=== PATIENT | male | born 1990 | race Two or more races ===

== ENCOUNTER 2022-02-21 14:07 | Emergency (ER) | payer OTHER, SELFPAY ==
--- NOTE | 2022-02-21 14:22 | ED.DENTAL ---
HPI - Dental/Oral General Stated complaint: Dental pain Time Seen by Provider: 02/21/22 14:21 Source: patient Mode of arrival: ambulatory Limitations: no limitations History of Present Illness HPI Narrative: 31 yo male presents to the ER for evaluation of dental pain. He states it has been a long time since he brushed his teeth (maybe weeks to months) and he just started doing do again. He states every tooth hurts when he brushes and when he drinks cold drinks. He thinks he may have one front upper tooth on the right that is lose and it is sore. No dental care. No facial swelling, gum swelling, fever or chills. He's coming to the ER asking for a dental cleaning. MD Complaint: tooth pain Onset (ago): day(s) Duration: intermittent Severity: moderate Severity scale (1-10): 5 Relieving factors: nothing Exacerbating factors: cold Context: poor dental care Treatment prior to arrival: none Review of Systems Constitutional: Constitutional: Denies chills and Denies fever(s) Eyes: Eyes: Reports no additional eye complaints ENT: Reports Normal hearing present, Reports dental pain, Denies dry mouth, Denies otalgia, Denies mouth lesions, Reports mouth pain, Denies neck pain, Denies odynophagia, Denies sore throat, Denies throat swelling and Denies tongue swelling Cardiovascular: Cardiovascular: Denies chest pain Respiratory: Respiratory: Denies cough Gastrointestinal: Gastrointestinal: Denies odynophagia Musculoskeletal: Musculoskeletal: Denies neck pain Integumentary/Breasts: Skin/Breast: Denies sores Neurologic: Reports Normal hearing present Hematologic/Lymphatic: Hematologic/Lymphatic: Denies easy bleeding Allergic/Immunologic: Allergic/Immunologic: Denies throat swelling and Denies tongue swelling [facility] Social History Social History Advance Directives: No Advance Directives Information Provided: Yes Physical Exam Const: General: cooperative, healthy appearing, comfortable, no acute distress and well developed Nutritional Appearance: average body habitus Orientation/consciousness: patient oriented x3 Limitations: language barrier HEENT: Head: Yes normal to inspection Ears: hearing grossly normal bilaterally General nose exam: Normal external nose present Face and sinus: Yes normal facial exam and Yes face symmetric Mouth: Normal oral and palatal mucosa present, lip normal, tongue normal, oropharynx normal, moist mucous membranes and malodorous breath Teeth and gingiva: gingiva normal and poor dentition Throat: Yes posterior oropharynx normal, Yes tonsils normal and Yes uvula midline Eyes: General: appearance normal, both eyes and all related structures Neck: Neck: Yes normal visual inspection, Yes no lymphadenopathy and Yes trachea midline Chest: Chest palpation & inspection: normal inspection of the chest Resp: Effort & Inspection: normal respiratory effort and able to speak in complete sentences Skin: General skin exam: no rashes or lesions noted Neuro: General: patient oriented x3 Cranial nerves: Yes Normal hearing present Cognition (Neuro): normal cognition Extrem: General: Yes normal to inspection and Yes full ROM Psych: Appearance: grossly normal Mental Status: mental status grossly normal Speech and movement: Normal speech and movement present Affect: normal affect Attitude: cooperative Course Course Course Narrative: 31 yo male with no connection to dental care presents to the ER seeking dental cleaning with reports of sensitivity and pain with brushing and cold foods. No evidence of major trauma or infection in the mouth. 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 He was given list of local dental providers. Recommended Sensodyne and flossing. stable for d/c home Discharge Plan Discharge Clinical Impression: Toothache Patient Disposition: Home, Self-Care Instructions: Toothache (ED), Mouth Care (ED) Additional Instructions: Recommend using Sensodyne toothpaste. Avoid food that is very hot or very cold. You must follow up with a dentist as soon as possible. If you have worsening pain or develop swelling or facial swelling, call your doctor or come back to the ER for further evaluation. Se recomienda usar la pasta de dientes Sensodyne. Evite los alimentos que est?n muy calientes o muy fr?os. Debe hacer un seguimiento con un dentista lo antes posible. Si tiene un dolor que empeora o desarrolla hinchaz?n o hinchaz?n facial, llame a molina m?dico o regrese a la aimee de emergencias para salbador evaluaci?n adicional. Print Language: Azeri
== END 2022-02-21 15:01 | disposition home or self-care (01) ==
LOC: HO.ED 14:57
PROVIDERS: Emergency Provider Emergency Medicine
DX: K08.89 Other specified disorders of teeth and supporting structures (principal); R46.0 Very low level of personal hygiene
CPT/HCPCS: 99283

== ENCOUNTER 2023-03-10 14:53 | Outpatient (REF) | payer MEDICAID, SELFPAY ==
--- NOTE | ~2023-03-10 | XR_ITS ---
EXAMINATION: XR LUMBOSACRAL SPINE CLINICAL INFORMATION: Acute bilateral back pain without sciatica pain for one week COMPARISON: None available. TECHNIQUE: Three views of the lumbosacral spine. FINDINGS: The normal lordosis is maintained. Vertebral heights and disc heights are fairly well-maintained. May be some early osteophytic spurring of L3-L4 and L2-L3 greater than L4-L5. The SI joints are grossly patent. Cannot exclude some sclerosis associated with the superior left SI joint. XR/XR lumbar spine 2-3V IMPRESSION: There is some mild observations as described. No listhesis or compression injury. If further evaluation is warranted consider MR
[2023-03-10 16:24] LABS: Eosinophils Absolute Auto 0.2 X10*3/uL (0.0-0.4); Eosinophils Percent Auto 2.5 % (0-4); Hematocrit 45.6 % (42.0-52.0); Hemoglobin 16.3 g/dl (14.0-18.0); Mean Corpuscular HGB Conc 35.7 g/dl (31.0-36.0); PLT CLUMP 1; Red Cell Distribution Width 13.8 % (11.0-16.0); SCAN SMEAR FLAG 1
[2023-03-10 16:25] LABS: Basophils Percent Auto 0.3 % (0-2); Imm Gran Abs Auto 0.02 X10*3/uL (0.00-0.03); Imm Gran Pct Auto 0.3 % (0.0-0.4); Lymphocytes Absolute Auto 2.5 X10*3/uL (1.2-4.9); Lymphocytes Percent Auto 41.8 % (20-40); MANUAL DIFF FLAG SCAN; Mean Corpuscular Hemoglobin 29.8 pg (27.0-33.0); Mean Corpuscular Volume 83.4 fL (80.0-98.0); Mean Platelet Volume 10.9 fL (9.4-12.4); Monocytes Absolute Auto 0.5 X10*3/uL (0.1-1.2); Monocytes Percent Auto 8.8 % (2-11); Neutrophils Absolute Auto 2.8 x10*3/uL (2.0-8.3); Neutrophils Percent Auto 46.3 % (45-73); Red Blood Count 5.47 X10*6/uL (4.60-5.80)
[2023-03-10 16:46] LABS: Alanine Aminotransferase 39 U/L (0-40); Albumin Level 4.8 g/dL (3.5-5.0); Alkaline Phosphatase 53 U/L (39-117); Anion Gap 12 (12-20); Aspartate Amino Transferase 38 U/L (5-37); Bilirubin Direct 0.2 mg/dL (0.0-0.5); Bilirubin Total 0.5 mg/dL (0.0-1.0); Blood Urea Nitrogen 10 mg/dL (9-16); C Reactive Protein < 0.10 mg/dL (< or = 0.50); Calcium 9.5 mg/dL (8.4-10.2); Carbon Dioxide 27 mmol/L (22-29); Chloride 107 mmol/L (96-108); Estimated Glomerular Filt Rate > 60; Glucose Random 79 mg/dL (60-115); Potassium 4.2 mmol/L (3.3-5.1); Sodium 142 mmol/L (135-145); Total Protein 8.4 g/dL (6.5-8.0)
[2023-03-10 16:49] LABS: Platelet Count 110 X10*3/uL (160-400); SLIDE REVIEW VERIFIED
== END 2023-03-10 14:54 | disposition home or self-care (01) ==
LOC: HO.HHCX 14:53
PROVIDERS: Visit Provider Family Medicine
DX: R30.0 Dysuria (principal); R52 Pain, unspecified; M54.50 Low back pain, unspecified
CPT/HCPCS: 36415; 72100; 80048; 80076; 85025; 86140; 87086

== ENCOUNTER 2023-03-11 10:46 | Outpatient (REF) | payer MEDICAID, SELFPAY ==
[2023-03-11 14:06] LABS: Appearance Urine Clear; Color Urine Yellow; Glucose Urine UA Negative (Negative); Leukocyte Esterase Urine Negative (Negative); Nitrite Urine Negative (Negative); Urine Blood Negative (Negative); Urine Ketones Negative (Negative); Urine Protein Negative (Neg-Trace)
== END 2023-03-11 10:47 | disposition home or self-care (01) ==
LOC: HO.HHCL 10:46
PROVIDERS: Visit Provider Family Medicine
DX: R30.0 Dysuria (principal); K29.50 Unspecified chronic gastritis without bleeding
CPT/HCPCS: 81003

== ENCOUNTER 2023-03-12 09:58 | Outpatient (REF) | payer MEDICAID, SELFPAY | END 2023-03-12 09:59 | disposition home or self-care (01) | LOC: HO.HHCLNP 09:58 | PROVIDERS: Visit Provider Internal Medicine | DX: K29.50 Unspecified chronic gastritis without bleeding (principal) | CPT/HCPCS: 87338 ==

== ENCOUNTER 2023-04-07 13:26 | Outpatient (REF) | payer MEDICAID, SELFPAY ==
--- NOTE | ~2023-04-07 | US_ITS ---
EXAMINATION: US RETROPERITONEAL LIMITED (RENAL ONLY) CLINICAL INFORMATION: Pelvic and perineal pain. COMPARISON: None available. TECHNIQUE: Real-time imaging of the kidneys. FINDINGS: RIGHT KIDNEY: 10.0 x 4.7 x 5.2 cm (SAG x AP x TRV). The kidney is normal in size, contour, and echogenicity. Renal cortical thickness is normal. No calculi or focal parenchymal lesions. No hydronephrosis. LEFT KIDNEY: 9.7 x 5.2 x 5.0 cm (SAG x AP x TRV). The kidney is normal in size, contour, and echogenicity. Renal cortical thickness is normal. No calculi or focal parenchymal lesions. No hydronephrosis. US/US renal BI IMPRESSION: No hydronephrosis or nephrolithiasis..
== END 2023-04-07 13:27 | disposition home or self-care (01) ==
LOC: HO.US 13:26
PROVIDERS: Visit Provider Internal Medicine
DX: R10.2 Pelvic and perineal pain (principal)
CPT/HCPCS: 76775

== ENCOUNTER 2024-03-06 08:03 | Emergency (ER) | payer OTHER, SELFPAY ==
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
[2024-03-06 08:06] VITALS: BP 138/90; PULSE 89; O2SAT 98
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
[2024-03-06 08:13] VITALS: BP 140/94; PULSE 87; RESP 18; TEMP 36.6; O2SAT 99; BMI 25.7
[2024-03-06] MEDS: Acetaminophen 325 MG TABLET 975 MG PO (08:32)
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
--- NOTE | 2024-03-06 11:43 | PC.NURSE ---
patient resting on stretcher, still endorsing some pain to left ribs, provided with ice pack for comfort, plan of care ongoing, awaiting provider reeval
[2024-03-06 13:08] VITALS: BP 100/69; PULSE 68; RESP 18; O2SAT 99
[2024-03-06 13:16] VITALS: BP 100/69; PULSE 68; RESP 18; TEMP 36.1; O2SAT 99
== END 2024-03-06 13:34 | disposition home or self-care (01) ==
PROVIDERS: Emergency Provider Student in an Organized Health Care Education/Training Program
DX: S09.90XA Unspecified injury of head, initial encounter (principal); V43.52XA Car driver injured in collision with other type car in traffic accident, initial encounter; Y93.9 Activity, unspecified; Y92.9 Unspecified place or not applicable; Y99.9 Unspecified external cause status; R07.9 Chest pain, unspecified; M25.561 Pain in right knee; M25.571 Pain in right ankle and joints of right foot; R07.81 Pleurodynia
CPT/HCPCS: 70450; 71111; 72125; 73564; 73610; 99284

== ENCOUNTER → 2024-03-06 08:19 | Outpatient (BNV) | payer OTHER, SELFPAY | PROVIDERS: Emergency Provider Student in an Organized Health Care Education/Training Program; Visit Provider Radiology Diagnostic Radiology | DX: T14.90XA Injury, unspecified, initial encounter (principal); V43.62XA Car passenger injured in collision with other type car in traffic accident, initial encounter | CPT/HCPCS: 70450; 72125 ==

== ENCOUNTER 2024-10-26 16:01 | Outpatient (REF) | payer OTHER, SELFPAY ==
[2024-10-26 18:28] LABS: Alanine Aminotransferase 47 U/L (0-40); Albumin Level 4.8 g/dL (3.5-5.0); Alkaline Phosphatase 56 U/L (39-117); Anion Gap 14 (12-20); Aspartate Amino Transferase 48 U/L (5-37); Bilirubin Direct 0.2 mg/dL (0.0-0.5); Bilirubin Total 0.6 mg/dL (0.0-1.0); Blood Urea Nitrogen 10 mg/dL (9-16); Calcium 9.3 mg/dL (8.4-10.2); Carbon Dioxide 23 mmol/L (22-29); Chloride 108 mmol/L (96-108); Estimated Glomerular Filt Rate > 60; Glucose Random 76 mg/dL (60-115); Potassium 4.6 mmol/L (3.3-5.1); Sodium 140 mmol/L (135-145)
== END 2024-10-26 16:02 | disposition home or self-care (01) ==
LOC: HO.HHCL 16:01
PROVIDERS: Visit Provider Student in an Organized Health Care Education/Training Program
DX: G44.209 Tension-type headache, unspecified, not intractable (principal)
CPT/HCPCS: 36415; 80048; 80076

== ENCOUNTER 2024-11-13 09:01 | Outpatient (REF) | payer MEDICAID, SELFPAY ==
--- OUTSIDE RECORDS SUMMARY | 2024-11-13 09:20 | XMS_ITS | Encounter Summary ---
Author Organization [facility] Address [address] [facility] 7t [address] [address] Care Team Providers Care Ambulatory Analyst Name Role Phone Shanita Perez MD Primary Care Provider [phone] Encounter Details Date Type Department Care Team (Latest Contact Info) Description 03/20/2022 Abstract [facility], Provider, DDS Social History Tobacco Use Types Packs/Day Years Used Date Smoking Tobacco: Never Assessed Sex and Gender Information Value Date Recorded Sex Assigned at Male 03/25/2022 11:36 AM EST Legal Sex Male 2:45 PM EST Gender Identity Male 03/25/2022 11:36 AM EST Sexual Orientation Choose not to disclose 2021 9:15 PM EST documented as of this encounter Plan of Treatment Upcoming Encounters Date Type Department Care Team (Late st Contact Info) Description 02/06/2025 10:00 AM EDT Office Visit [facility] [address] [place] [address] Freda Madelin [address] [place] [address] documented as of this encounter Visit Diagnoses Not on filedocumented in this encounter Care Teams Ambulatory Analyst Relationship Specialty Start Date End Date Shanita Perez MD [address] [place] [address] PCP - General Family Medicine 10/30/24 documented as of this encounter
[2024-11-13 12:20] LABS: Cholesterol 155 mg/dL (<200); HDL Cholesterol 25 mg/dL (>40); Triglycerides 164 mg/dL (<150)
[2024-11-13 12:31] LABS: ~HepC Num1 0.15 S/CO (0.00-0.79); ~Hepatitis C Antibody Nonreactive (Nonreactive)
== END 2024-11-13 09:02 | disposition home or self-care (01) ==
LOC: HO.HHCL 09:01
PROVIDERS: PCP Student in an Organized Health Care Education/Training Program; Visit Provider Student in an Organized Health Care Education/Training Program
DX: R79.89 Other specified abnormal findings of blood chemistry (principal)
CPT/HCPCS: 36415; 80061; 86803

== ENCOUNTER 2025-01-24 09:35 | Outpatient (REF) | payer MEDICAID, SELFPAY ==
--- OUTSIDE RECORDS SUMMARY | 2025-01-24 09:00 | XMS_ITS | Encounter Summary ---
Author Organization [employer] Address [address] [facility] [address] 7t [place] [address] Care Team Providers Care Welder/Fitter Name Role Phone Shanita Perez MD Primary Care Provider [phone] Reason for Visit * Reason Comments Sore Throat Encounter Details Date Type Department Care Team ([facility] st Contact Info) Description 01/24/2025 9:00 AM EDT Office Visit [facility] [address] [place] [address] [phone] Pharyngitis, unspecified etiology (Primary Dx); Dysuria Social History Tobacco Use Types Packs/Day Years Used Date Smoking Tobacco: Never Smokeless Tobacco: Never Alcohol Use Standard Drinks/Week Comments Never 0 (1 standard drink = 0.6 oz pur e alcohol) Sex and Gender Information Value Date Recorded Sex Assigned at Male 03/25/2022 11:36 AM EST Legal Sex Male 2:45 PM EST Gender Identity Male 03/25/2022 11:36 AM EST Sexual Orientation Choose not to disclose 2021 9:15 PM EST documented as of this encounter Last Filed Vital Signs Vital Sign Reading Time Taken Comments Blood Pressure 126/86 01/24/2025 9:03 AM EDT Pulse 68 01/24/2025 9:03 AM EDT Temperature 36.9 C (98.4 F) 01/24/2025 9:03 AM EDT Respiratory Rate 18 01/24/2025 9:03 AM EDT Oxygen Saturation 98% 01/24/2025 9:03 AM EDT Inhaled Oxygen Concentration - - Weight 82.1 kg (181 lb) 01/24/2025 9:03 AM EDT Height - - Body Mass Index 31.07 03/11/2023 10:07 AM EST documented in this encounter Plan of Treatment Upcoming Encounters Date Type Department Care Team (Late st Contact Info) Description 02/06/2025 8:45 AM EDT Office Visit [facility] [address] [place] [address] Freda, Madelin [address] [place] [address] Scheduled Orders Name Type Priority Associated Diagnoses Orde r Schedule Basic Metabolic Panel Lab Routine Dysuria Expected: 01/24/2025 (Approximate), Expires: 01/24/2026 Culture, Urine, Routine Microbiology Routine Dysuria Ordered: 01/24/2025 Chlamydia/N. Gonorrhoeae RNA, TMA, Urogenitial Microbiology Routine Dysuria Ordered: 01/24/2025 documented as of this encounter Procedures Procedure Name Priority Date/Time Associated Diagnosis Comments POCT URINALYSIS DIPSTICK Routine 01/24/2025 9:35 AM EDT Dysuria documented in this encounter Results * (ABNORMAL) POCT urinalysis dipstick manually resulted (01/24/2025 9:35 AM EDT) Color, UA Yellow Clarity, UA Clear Glucose, UA Negative Bilirubin, UA Negative Ketones, UA Negative Spec Grav, UA 1.025 Blood, UA Positive(A) Negative, None Detected Comment:Trace- lysed pH, UA 5.5 Protein, UA Negative Urobilinogen, UA 0.2 Leukocytes, UA Negative Negative, Rare, Trace Nitrite, UA Negative Negative, None Detected Urine 01/24/2025 9:35 AM EDT Artem Wilson MD POINT OF CARE TEST ENTER/EDIT OR DERABLES Final Result documented in this encounter Visit Diagnoses Diagnosis Pharyngitis, unspecified etiology- Primary Dysuria documented in this encounter Care Teams Welder/Fitter Relationship Specialty Start Date End Date Shanita Perez MD [address] [place] [address] PCP - General Family Medicine 10/30/24 documented as of this encounter
--- OUTSIDE RECORDS SUMMARY | 2025-01-24 11:27 | XMS_ITS | Encounter Summary ---
Author Organization [facility] Address [address] [facility] 7t [place] [address] Care Team Providers Care Bulb Tester Name Role Phone Shanita Perez MD Primary Care Provider [phone] Encounter Details Date Type Department Care Team (Latest Contact Info) Description 01/24/2025 Travel Social History Tobacco Use Types Packs/Day Years [...] Description 02/06/2025 8:45 AM EDT Office Visit [facility] [address] [place] [address] Freda, Madelin [address] [place] [address] documented as of this encounter Visit Diagnoses Not on filedocumented in this encounter Care Teams Bulb Tester Relationship Specialty Start Date End Date Shanita Perez MD [address] [place] [address] PCP - General Family Medicine 10/30/24 documented as of this encounter
--- OUTSIDE RECORDS SUMMARY | 2025-01-24 11:27 | XMS_ITS | Clinical Summary ---
Author Organization [employer] Address [address] [facility] 7t [place] [address] Care Team Providers Care Director Of Rehabilitative Services Name Role Phone Shanita Perez MD Primary Care Provider [phone] Allergies No known active allergies Medications ibuprofen 800 MG tablet TAKE 1 TABLET BY MOUTH 3 TIMES DAILY. 90 tablet 5 Active ibuprofen 400 MG tablet Take 1 tablet (400 mg) by mouth every 6 (six) hours if needed for moderate pain or fever for up to 30 doses. 30 tablet 5 Active ibuprofen 800 MG tablet TAKE 1 TABLET BY MOUTH 3 TIMES DAILY. 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 Exam with mild suprapubic tenderness. UA in office in neg for LE or Nit. Differential includes musculoskeletal, urinary tract, infectious, renal calculi vs other. -COVID, flu and strep negative in ER 02/19/23 -urine dip unremarkable in office -COVID negative in office -will check labs including formal UA with culture -XR of l spine ordered -short course of omeprazole for GERD symptoms -return tomorrow for status check and results. ER precuautions given. He agrees with the plan. Resolved Problems Problem Noted Date Diagnosed Date Resolved Date Lumbago 03/10/2023 03/10/2023 Encounters Date Type Department Care Team Description 01/24/2025 9:00 AM EDT Office Visit [facility] [address] [place] [phone] Pharyngitis, unspecified etiology (Primary Dx); Dysuria 01/24/2025 Travel 12/24/[address] [facility] [address] [place] [phone] Shanita Perez MD 11/22/[address] [facility] [address] [place] [phone] Shanita Perez MD 11/10/2024 11:00 AM EDT Telemedicine [facility] [address] [place] [address] Shanita Perze MD Elevated LFTs (Primary Dx) 11/09/2024 Travel 10/30/2024 Results Follow-Up [facility] [address] [place] [address] Shanita Perez MD Basic Metabolic Panel, Hepatic Function Panel 10/26/2024 3:40 PM EDT Office Visit [facility] [address] [place] [phone] Shanita Perez MD Tension headache (Primary Dx); Dehydration 10/26/2024 Travel from Last 3 Months Social History Tobacco Use Types Packs/Day Years Used Date Smoking Tobacco: Never Smokeless Tobacco: Never Tobacco Cessation:Counseling Given: Not Answered Alcohol Use Standard Drinks/Week Comments Never 0 (1 standard drink = 0.6 oz pur e alcohol) Sex and Gender Information Value Date Recorded Sex Assigned at Male 03/25/2022 11:36 AM EST Legal Sex Male 2:45 PM EST Gender Identity Male 03/25/2022 11:36 AM EST Sexual Orientation Choose not to disclose 2021 9:15 PM EST Last Filed Vital Signs Vital Sign Reading Time Taken Comments Blood Pressure 126/86 01/24/2025 9:03 AM EDT Pulse 68 01/24/2025 9:03 AM EDT Temperature 36.9 C (98.4 F) 01/24/2025 9:03 AM EDT Respiratory Rate 18 01/24/2025 9:03 AM EDT Oxygen Saturation 98% 01/24/2025 9:03 AM EDT Inhaled Oxygen Concentration - - Weight 82.1 kg (181 lb) 01/24/2025 9:03 AM EDT Height 162.6 cm (5' 4 ) 03/11/2023 10:07 AM EST Body Mass Index 31.07 03/11/2023 10:07 AM EST Plan of Treatment Upcoming Encounters Date Type Department Care Team (Late st Contact Info) Description 02/06/2025 8:45 AM EDT Office Visit [facility] [address] [place], [place] [phone] Freda, Madelin [address] [place] [address] Health Maintenance Due Date Last Done Comments Depression Screening 1988 HIV Screening 1988 SDOH Screening 1988 Disability Screening 1988 Alcohol/Substance Use Screening 2000 Family Planning (PISQ) 09/16/2003 HPV Vaccines (1 - Male 3-dose series) 09/16/2003 DTaP/Tdap/Td Vaccines (1 - Tdap) 09/16/2007 Hepatitis B Vaccines (1 of 3 - 19+ 3-dose series) 09/16/2007 COVID-19 Vaccine (1 - season) 2025 Influenza Vaccine (#1) 2025 Dental Oral Exam 01/31/2025 07/31/2024, 03/2023, 03/20/2022 Dental Prophylaxis 01/31/2025 07/31/2024, 0 01/28/2024, 04/12/2023, Additional history exists Dental X-Ray: Full Mouth 03/14/2025 03/13/2022 Dental X-Ray: Bitewings 08/01/2025 08/01/19 25, 04/12/2023, 03/13/2022 Tobacco Screening 01/24/2026 01/24/2025 Lipid Panel 11/13/2029 11/13/2024 Zoster Vaccines (1 of 2) 2038 RSV Patients and Patients Aged 60 years or older (1 - 1-dose 75+ series) 09/16/2063 Hepatitis C Screening Completed 11/13/2024 HIB Vaccines Aged Out No longer eligi ble based on patient's age to complete this topic Hepatitis A Vaccines Aged Out No long er eligible based on patient's age to complete this topic IPV Vaccines Aged Out No longer eligi ble based on patient's age to complete this topic Meningococcal B Vaccine Aged Out No l onger eligible based on patient's age to complete this topic Meningococcal Vaccine Aged Out No marynan reinaldo eligible based on patient's age to complete this topic Pneumococcal Vaccine: Pediatrics (0 to 5 Years) and At-Risk Patients (6 to 49) Years Aged Out No longer eligible based on patient's age to complete this topic RSV under 20 months Aged Out No longe r eligible based on patient's age to complete this topic Rotavirus Vaccines Aged Out No longer eligible based on patient's age to complete this topic Procedures Procedure Name Priority Date/Time Associated Diagnosis Comments POCT URINALYSIS DIPSTICK Routine 01/24/2025 9:35 AM EDT Dysuria HEPATITIS C AB W/REFL TO HCV RNA, QN, PCR Routine 11/13/2024 9:06 AM EDT Elevated LFTs LIPID PANEL, STANDARD Routine 11/13/2024 9:06 AM EDT Elevated LFTs HEPATIC FUNCTION PANEL Routine 10/26/2024 4:07 PM EDT Tension headache BASIC METABOLIC PANEL Routine 10/26/2024 4:07 PM EDT Tension headache PROPHYLAXIS - ADULT Routine 07/31/2024 1 0:00 AM EDT Dental calculus Periodontal disease BITEWINGS - 4 RADIOGRAPHIC IMAGES Routine 07/31/2024 10:00 AM EDT Dental calculus Periodontal disease PERIODIC ORAL EVALUATION - ESTABLISHED PATIENT Routine 07/31/2024 10:00 AM EDT INTRAORAL - COMPLETE SERIES OF RADIOGRAPHIC IMAGES Routine 03/13/2022 12:00 AM EST from Last 3 Months or Most Recently Relevant to Health Maintenance Results * (ABNORMAL) POCT urinalysis dipstick manually resulted (01/24/2025 9:35 AM EDT) Pathologist [facility] Color, UA Yellow Clarity, UA Clear Glucose, [...] CARE TEST ENTER/EDIT OR DERABLES Final Result * Hepatitis C Antibody with Reflex to HCV, RNA, Quantitative, Real-Time PCR (11/13/2024 9:06 AM EDT) Pathologist [facility] Hepatitis C Antibody Nonreactive Nonreactive [facility] Comment:Antibodies to HCV no t detected; does not exclude early acuteHCV infection. Blood Venous blood specimen / Unknown 11/13/2024 9:06 AM EDT 11/13/2024 11:32 AM EDT Shanita Perez MD LAB BLOOD ORDERABLES Final Resul t [facility] [address] [place] [phone] * (ABNORMAL) Lipid Panel, Standard (11/13/2024 9:06 AM EDT) Pathologist [facility] Triglycerides 164(H) <150 mg/dL [facility] Comment:Desirable Triglyceri de: less than 150 mg/dLBorderline High Triglyceride 150-199 mg/dLHigh Triglyceride: 200-499 mg/dLVery High Triglyceride: greater than or equal to 5OO mg/dL Cholesterol 155 <200 mg/dL [facility] Comment:Desirable Cholestero l: less than 200 mg/dLBorderline High Cholesterol: 200-239 mg/dLHigh Cholesterol: greater than 239 mg/dL LDL Cholesterol Calculated 98 <100 mg/dL [facility] Comment:Desirable LDL: less than 100 mg/dLNear Optimal/Above Optimal LDL: 110- 129 mg/dLBorderline High LDL: 130-159 mg/dLHigh LDL: 160-189 mg/dLVery High LDL: greater than or equal to 190 mg/dL HDL Cholesterol 25(L) >40 mg/dL [facility] Comment:Desirable HDL: great er than 40 mg/dL Note: This HDL assay may give artificially low results in patients with liver disease. Blood Venous blood specimen / Unknown 11/13/2024 9:06 AM EDT 11/13/2024 11:32 AM EDT us Shanita Perez MD LAB BLOOD ORDERABLES Final Resul t Performing Organization Address [facility] Co de Phone Number [facility] [address] [place] [phone] * (ABNORMAL) Hepatic Function Panel (10/26/2024 4:07 PM EDT) Bilirubin, Total 0.6 0.0 - 1.0 mg/dL [facility] Bilirubin, Direct 0.2 0.0 - 0.5 mg/dL [facility] Aspartate Amino Transferase 48(H) 5 - 37 U/L [facility] Comment:Slight Hemolysis.Int erpret result with caution. Alanine Aminotransferase 47(H) 0 - 40 U/L [facility] Total Protein 8.0 6.5 - 8.0 g/dL [facility] Albumin Level 4.8 3.5 - 5.0 g/dL [facility] Alkaline Phosphatase 56 39 - 117 U/L [facility] Blood Venous blood specimen / Unknown 10/26/2024 4:07 PM EDT 10/26/2024 5:50 PM EDT us Shanita Perez MD LAB BLOOD ORDERABLES Final Resul t Performing Organization Address [facility]/ZIP Co de Phone Number [facility] [address] [place] [phone] * Basic Metabolic Panel (10/26/2024 4:07 PM EDT) Sodium 140 135 - 145 mmol/L [facility] Potassium 4.6 3.3 - 5.1 mmol/L [facility] Comment:Slight Hemolysis.Int erpret result with caution. Chloride 108 96 - 108 mmol/L [facility] Carbon Dioxide 23 22 - 29 mmol/L [facility] Anion Gap 14 12 - 20 [facility] Urea Nitrogen (BUN) 10 9 - 16 mg/dL [facility] Creatinine, Serum 1.01 0.5 - 1.4 mg/dL [facility] Estimated Glomerular Filt Rate >60 [facility] Comment:Chronic Kidney Disea se: Estimated GFR < 60 mL/min/[id number] Kidney Disease: Estimated GFR < 15 mL/min/1.73m2 Glucose 76 60 - 115 mg/dL [facility] Calcium 9.3 8.4 - 10.2 mg/dL [facility] Blood Venous blood specimen / Unknown 10/26/2024 4:07 PM EDT 10/26/2024 5:50 PM EDT us Shanita Perez MD LAB BLOOD ORDERABLES Final Resul t [facility] [address] [place] [phone] from Last 3 Months Insurance [facility] C[facility] [place] STAND ADULT Care Teams Director Of Rehabilitative Services Relationship Specialty Start Date End Date Shanita Perez MD [address] [place] [phone] PCP - General Family Medicine 10/30/24
--- OUTSIDE RECORDS SUMMARY | 2025-01-24 11:27 | XMS_ITS | Encounter Summary ---
Author Organization [employer] Address [address] 7t [place] [address] Care Team Providers Care Group Sales Coordinator Name Role Phone Shanita Perez MD Primary Care Provider [phone] Encounter Details Date Type Department Care Team (Late st Contact Info) Description 03/24/2022 Abstract [facility] [address] [place] [address] Dane Damon, OSKAR [address] [place] [address] Social History Tobacco Use Types Packs/Day Years [...] Description 02/06/2025 8:45 AM EDT Office Visit [facility] [address] [place] [address] Madelin Barba [address] [place] [address] documented as of this encounter Procedures Procedure Name Priority Date/Time Associated Diagnosis Comments 19 DO COMPOSITE FILLING Routine 03/24/20 12:00 AM EST ORAL HYGIENE INSTRUCTIONS Routine 2021 12:00 AM EST COMPREHENSIVE ORAL EVALUATION - NEW OR ESTABLISHED PATIENT Routine 03/20/2022 12:00 AM EST CARIES RISK ASSESSMENT AND DOCUMENTATION, HIGH RISK Routine 03/20/2022 12:00 AM EST INTRAORAL - COMPLETE SERIES OF RADIOGRAPHIC IMAGES Routine 03/13/2022 12:00 AM EST documented in this encounter Visit Diagnoses Not on filedocumented in this encounter Care Teams Group Sales Coordinator Relationship Specialty Start Date End Date Shanita Perez MD [address] [place] [address] PCP - General Family Medicine 10/30/24 documented as of this encounter
--- OUTSIDE RECORDS SUMMARY | 2025-01-24 11:27 | XMS_ITS | Encounter Summary ---
Author Organization [facility] Address [address] [facility] 7t [place] [address] Care Team Providers Care Planning Director Name Role Phone Shanita Perez MD Primary Care Provider [phone] Encounter Details Date Type Department Care Team (Latest Contact Info) Description 03/20/2022 Abstract [facility] CONVERSIONS Dental, Provider, DDS Social History Tobacco [...] Description 02/06/2025 8:45 AM EDT Office Visit [facility] [address] [place] [address] Freda Madelin [address] [place] [address] documented as of this encounter Visit Diagnoses Not on filedocumented in this encounter Care Teams Planning Director Relationship Specialty Start Date End Date Shanita Preez MD [address] [place] [address] PCP - General Family Medicine 10/30/24 documented as of this encounter
--- OUTSIDE RECORDS SUMMARY | 2025-01-24 11:27 | XMS_ITS | Encounter Summary ---
Author Organization [employer] [facility] Address [address] [facility] 7t [place] [address] Care Team Providers Care Manager Process Excellence Name Role Phone Shanita Perez MD Primary Care Provider [phone] Encounter Details Date Type Department Care Team (Late st Contact Info) Description 04/27/2023 Abstract [facility] [address] [place] [address] Ruddy Montenegro DDS [address] [place] [address] Social History Tobacco Use Types Packs/Day Years [...] Description 02/06/2025 8:45 AM EDT Office Visit [facility] [address] [place] [address] Madelin Barba [address] [place] [address] documented as of this encounter Visit Diagnoses Not on filedocumented in this encounter Care Teams Manager Process Excellence Relationship Specialty Start Date End Date Shanita Perez MD [address] [place] [address] PCP - General Family Medicine 10/30/24 documented as of this encounter
[2025-01-24 12:38] LABS: Anion Gap 12 (12-20); Blood Urea Nitrogen 8 mg/dL (9-16); Calcium 9.3 mg/dL (8.4-10.2); Carbon Dioxide 25 mmol/L (22-29); Chloride 108 mmol/L (96-108); Estimated Glomerular Filt Rate > 60; Potassium 4.1 mmol/L (3.3-5.1); Sodium 141 mmol/L (135-145)
[2025-01-24 17:57] LABS: CT PCR Urine NOT DETECTED (Not Detect.); NG PCR Urine NOT DETECTED (Not Detect.)
== END 2025-01-24 09:36 | disposition home or self-care (01) ==
LOC: HO.HHCL 09:35
PROVIDERS: PCP Student in an Organized Health Care Education/Training Program; Visit Provider Emergency Medicine
DX: Z20.2 Contact with and (suspected) exposure to infections with a predominantly sexual mode of transmission (principal); R30.0 Dysuria
CPT/HCPCS: 36415; 80048; 87086; 87491; 87591